=== PATIENT | female | born 1975 | race Caucasian/White ===

== ENCOUNTER → 2016-07-21 | Outpatient (CLI) | payer BC ==
--- NOTE | 2016-07-21 08:09 | US ---
EXAMINATION TYPE: US abdomen complete DATE OF EXAM: 07/21/2016 7:27 AM COMPARISON: on PACS CLINICAL HISTORY: R10.0 Acute Abd Pain,. Aches after eating EXAM MEASUREMENTS: Liver Length: 20.6 cm Gallbladder Wall: 0.1 cm CBD: 0.3 cm CHD: 0.3 cm Spleen: 10.2 cm Right Kidney: 11.1 x 4.4 x 4.5 cm Left Kidney: 11.3 x 5.1 x 7.0 cm Pancreas: wnl Liver: enlarged Gallbladder: fold seen, wnl Evidence for sonographic Skinner's sign: neg CBD: wnl Spleen: wnl Right Kidney: wnl Left Kidney: wnl Upper IVC: seen Abd Aorta: seen The liver is homogenous. The intrahepatic portion of the IVC and proximal abdominal aorta are within normal limits. There is no evidence of cholelithiasis. Common bile duct is unremarkable. The visu alized portions of the pancreas are homogenous. The spleen is unremarkable. Kidneys are symmetric a nd free of hydronephrosis. No renal lesions are seen. IMPRESSION: No distinct abnormality appreciated.
== END | disposition home or self-care (01) ==
LOC: RADUSWWP 06:57
PROVIDERS: ATTEND Family Medicine
DX: R10.0 Acute abdomen (principal)
CPT/HCPCS: 76700

== ENCOUNTER → 2016-07-21 | Outpatient (CLI) | payer BC ==
--- NOTE | 2016-07-24 09:21 | MM ---
Reason for exam: screening (asymptomatic). History: Family history of breast cancer in paternal grandmother. Taking hormonal contraceptives for 5 years. Physical Findings: A clinical breast exam by your physician is recommended on an annual basis and results should be correlated with mammographic findings. MG 3D Screening Mammo W/Cad Bilateral CC and MLO view(s) were taken. No prior studies available for comparison. Benign calcifications bilaterally. No significant changes when compared with prior studies. ASSESSMENT: Benign, BI-RAD 2 RECOMMENDATION: Routine screening mammogram of both breasts in 1 year.
== END | disposition home or self-care (01) ==
LOC: RADMAMWWP 07:01
PROVIDERS: ATTEND Obstetrics & Gynecology
DX: Z12.31 Encounter for screening mammogram for malignant neoplasm of breast (principal); Z80.3 Family history of malignant neoplasm of breast
CPT/HCPCS: 77063; G0202

== ENCOUNTER → 2016-11-21 | Outpatient (CLI) | payer BC | END | disposition home or self-care (01) | LOC: RADECHMAIN 11:47 | PROVIDERS: ATTEND Family Medicine | DX: R00.1 Bradycardia, unspecified (principal); R00.0 Tachycardia, unspecified | CPT/HCPCS: 93225; 93226 ==

== ENCOUNTER → 2020-06-23 | Outpatient (CLI) | payer BC ==
--- NOTE | 2020-06-25 08:10 | MM ---
Reason for exam: screening (asymptomatic). Last mammogram was performed 3 years and 11 months ago. History: Family history of breast cancer in paternal grandmother. Taking hormonal contraceptives for 5 years. Physical Findings: A clinical breast exam by your physician is recommended on an annual basis and results should be correlated with mammographic findings. MG 3D Screening Mammo W/Cad Bilateral CC and MLO view(s) were taken. Prior study comparison: July 21, 2016, bilateral MG 3d screening mammo w/cad. There are scattered fibroglandular densities. No significant changes when compared with prior studies. ASSESSMENT: Negative, BI-RAD 1 RECOMMENDATION: Routine screening mammogram of both breasts in 1 year.
== END | disposition home or self-care (01) ==
LOC: RADMAMWWP 15:52
PROVIDERS: ATTEND Obstetrics & Gynecology
DX: Z12.31 Encounter for screening mammogram for malignant neoplasm of breast (principal)
CPT/HCPCS: 77063; 77067

== ENCOUNTER → 2020-09-10 | Outpatient (CLI) | payer BC ==
--- NOTE | 2020-09-10 12:44 | EST ---
EXERCISE STRESS PROCEDURE: Stress test INDICATION: Chest pain. PROCEDURE IN DETAIL: Baseline EKG shows sinus rhythm with poor R-wave progression. Patient exercised on Ced protocol for a total of 6 minutes and 50 seconds achieving 8 METS, 92% of predicted maximal heart rate without chest pain or diagnostic ST-segment depression. CONCLUSIONS: 1. Limited exercise tolerance. 2. Negative stress test by EKG criteria. MMMARILUL / IJN: [id number] /
== END | disposition home or self-care (01) ==
LOC: RADNMMAIN 08:33
PROVIDERS: ATTEND Family Medicine
DX: R07.9 Chest pain, unspecified (principal)
CPT/HCPCS: 93017

== ENCOUNTER 2023-01-28 13:25 | Emergency (ER) | payer BC ==
[2023-01-28] MEDS ORDERED: KETOROLAC 15 MG/ML 1 ML VIAL IM STA (13:48)
[2023-01-28] MEDS ORDERED: HYDROcodone/APAP 5-325MG 1 EACH TAB PO STA (13:48)
--- NOTE | 2023-01-28 14:43 | ED ---
General Adult HPI - General Chief complaint: Fall Stated complaint: Fall,on 01/26 Time Seen by Provider: 01/28/23 13:30 Source: patient, RN notes reviewed, old records reviewed Mode of arrival: ambulatory Limitations: no limitations - History of Present Illness Initial comments: Patient is a 47 red female presents emergency Department after a fall. Patient fell down 3 bun steps on Sunday and is still complaining of left-sided leg pain. States that when she fell she landed on her left hip and rolled on the status. Is complaining of posterior left thigh, left knee, left tib-fib pain. Thinks it may be bruised but has pain with movement and when standing up. Presents for further evaluation at this time. Seeking x-rays. No sensory deficits. Still is normal range of motion. He has been weightbearing on it. Denies head injury or loss of consciousness. - Related Data Previous Rx's Medication Instructions Recorded Cyclobenzaprine [Flexeril] 5 mg PO TID PRN 7 Days #21 tablet 01/28/23 Allergies Allergy/AdvReac Type Severity Reaction Status Date / Time No Known Allergies Allergy Verified 01/28/23 13:29 Review of Systems ROS Statement: Those systems with pertinent positive or pertinent negative responses have been documented in the HPI. Review of Systems: CONST: Denies fever EYES: Denies blurry vision ENT: Denies nasal congestion C/V: Denies Chest pain RESP: Denies shortness of breath GI: Denies abdominal pain : Denies dysuria SKIN: Denies rash. MSK: Endorses generalized left leg pain NEURO: Denies headache ROS Other: All systems not noted in ROS Statement are negative. Past Medical History Past Medical History: No Reported History History of Any Multi-Drug Resistant Organisms: None Reported Additional Past Surgical History / Comment(s): LORELEI Past Psychological History: No Psychological Hx Reported Smoking Status: Never smoker Past Alcohol Use History: None Reported Past Drug Use History: None Reported General Exam - General Exam Comments Initial Comments: General: Appears in no acute distress. HEAD: Normal with no signs of head trauma. EYES: EOMI ENT: Hearing grossly intact, normal oropharynx. RESPIRATORY: No respiratory distress C/V: Regular rate and rhythm. S1 and S2 auscultated, peripheral pulses 2+ and intact throughout ABD: Abdomen is nontender. EXT: Normal range of motion, no obvious deformity. Tenderness to palpation along the posterior aspect of the left femur, knee, tib-fib. Bruising located along the site. Decreased range of motion of the left knee secondary to pain. Pain with varus and valgus movements. Anterior drawer test negative. SKIN: No rashes or lesions observed on exposed skin. NEURO: Alert and oriented 4. Limitations: no limitations Course Vital Signs 01/28/23 01/28/23 13:26 16:03 Temperature 98.3 F 98.4 F Pulse Rate 97 72 Respiratory 20 18 Rate Blood Pressure 137/83 136/78 O2 Sat by Pulse 99 97 Oximetry Medical Decision Making - Medical Decision Making Was pt. sent in by a medical professional or institution (, PA, WHIPPER, urgent care, hospital, or fdc...) When possible be specific @ -No Did you speak to anyone other than the patient for history (EMS, parent, family, police, friend...)? What history was obtained from this source @ -No Did you review nursing and triage notes (agree or disagree)? Why? @ -I reviewed and agree with nursing and triage notes Were old charts reviewed (outside hosp., previous admission, EMS record, old EKG, old radiological studies, urgent care reports/EKG's, fdc records)? Report findings @ -No old charts were reviewed Differential Diagnosis (chest pain, altered mental status, abdominal pain women, abdominal pain men, vaginal bleeding, weakness, fever, dyspnea, syncope, headache, dizziness, GI bleed, back pain, seizure, CVA, palpatations, mental h ealth, musculoskeletal)? @ -Differential Musculoskeletal Muscular strain, contusion, ligament sprain, fracture, arthritis, septic arthritis, bursitis, cellulitis, muscle spasm, nerve compression, DVT, arterial occlusion, herpes zoster, electrolyte abnormality, tumor.... This is not meant to be in all inclusive list EKG interpreted by me (3pts min.). @ -None done X-rays interpreted by me (1pt min.). @ -X-ray imaging of the left lower extremity reveals no evidence of acute fracture or subluxation. CT interpreted by me (1pt min.). @ -None done U/S interpreted by me (1pt. min.). @ -None done What testing was considered but not performed or refused? (CT, X-rays, U/S, labs)? Why? @ -None What meds were considered but not given or refused? Why? @ -None Did you discuss the management of the patient with other professionals (professionals i.e. , PA, WHIPPER, lab, RT, psych nurse, social sciences professor, clinical resource director, teacher, business development officer, case therapist)? Give summary @ -No Was smoking cessation discussed for >3mins.? @ -No Was critical care preformed (if so, how long)? @ -No Were there social determinants of health that impacted care today? How? (Homelessness, low income, unemployed, alcoholism, drug addiction, transportati on, low edu. Level, literacy, decrease access to med. care, usp, rehab)? @ -No Was there de-escalation of care discussed even if they declined (Discuss DNR or withdrawal of care, Hospice)? DNR status @ -No What co-morbidities impacted this encounter? (DM, HTN, Smoking, COPD, CAD, Cancer, CVA, ARF, Chemo, Hep., AIDS, mental health diagnosis, sleep apnea, morbid obesity)? @ -None Was patient admitted / discharged? Hospital course, mention meds given and route, prescriptions, significant lab abnormalities, going to OR and other pertinent info. @ -Based on the patient's presentation and physical exam, I'm concerned for possible leg injury. Likely soft tissue in nature but we will obtain x-rays. Patient in agreement this plan. She'll be symptomatically treated with oral Vinton as well as IM Toradol. Vital signs within acceptable limits. X-rays negative for any obvious acute injury. I updated the patient. Patient will be discharged home at this time with follow-up with orthopedics. She'll be given crutches as well as a knee immobilizer. She was in agreement with this plan. Suspect knee sprain. Discussed elevation, ice of her left leg as well as [id number] analgesic medications as needed. I will provide the patient with a prescription for Flexeril. I instructed the patient to follow up with their PCP in the next 1-3 days. I provided contact information for follow up with orthopedic surgery. I explained that the patient should return to the emergency department if they experience any worsening symptoms. Strict return precautions were discussed with the patient. The patient expressed understanding of these instructions. I answered all questions that the patient had. The patient was discharged home in fair condition with their prescriptions and follow up information. Undiagnosed new problem with uncertain prognosis? @ -No Drug Therapy requiring intensive monitoring for toxicity (Heparin, Nitro, Insulin, Cardizem)? @ -No Were any procedures done? @ -No Diagnosis/symptom? @ -Fall, left knee sprain Acute, or Chronic, or Acute on Chronic? @ -Acute Uncomplicated (without systemic symptoms) or Complicated (systemic symptoms)? @ -Uncomplicated Side effects of treatment? @ -none Exacerbation, Progression, or Severe Exacerbation] @ -no Poses a threat to life or bodily function? @ -no Disposition Clinical Impression: Fall, Left knee sprain Disposition: HOME SELF-CARE Condition: Fair Instructions (If sedation given, give patient instructions): Leg Sprain (ED), Fall Prevention (ED) Prescriptions: Cyclobenzaprine [Flexeril] 5 mg PO TID PRN 7 Days #21 tablet PRN Reason: Pain Is patient prescribed a controlled substance at d/c from ED?: No Referrals: Myesha Sommers MD [Primary Care Provider] - 1-2 days Guadalupe Mccormick DO [Doctor of Osteopathic Medicine] - 1-2 days Time of Disposition: 15:05
--- NOTE | 2023-01-28 14:44 | XR ---
EXAMINATION TYPE: XR pelvis AP view DATE OF EXAM: 01/28/2023 2:24 PM INDICATION: Patient age:Female; 47 years old; Reason for study: fall, pain; PHH. COMPARISON: CT urogram 01/15/2015 TECHNIQUE: The pelvis was examined in a single projection. FINDINGS: There is no evidence of fracture or dislocation. There is no soft tissue abnormality. Few pelvic phleboliths. Multilevel degenerative changes of the lower spine. IMPRESSION: No acute osseous pathology.
--- NOTE | 2023-01-28 14:45 | XR ---
EXAMINATION TYPE: XR femur LT DATE OF EXAM: 01/28/2023 2:24 PM INDICATION: Patient age:Female; 47 years old; Reason for study: fall, pain; COMPARISON: Pelvic radiograph the same date. TECHNIQUE: The left femur was examined in AP and lateral projections. FINDINGS: No evidence of acute osseous pathology, joint dislocation, or soft tissue swelling . Pelvi c phleboliths. IMPRESSION: No acute osseous pathology.
--- NOTE | 2023-01-28 14:46 | XR ---
EXAMINATION TYPE: XR knee complete LT DATE OF EXAM: 01/28/2023 2:24 PM INDICATION: Patient age:Female; 47 years old; Reason for study: fall, pain; PHH. COMPARISON: Left lower extremity radiograph same date TECHNIQUE: The Left knee(s) was examined in Frontal, lateral and oblique projections. FINDINGS: No evidence of any acute osseous pathology, soft tissue swelling, or joint effusion is no verito. IMPRESSION: No acute osseous pathology.
--- NOTE | 2023-01-28 14:47 | XR ---
EXAMINATION TYPE: XR tibia fibula LT DATE OF EXAM: 01/28/2023 2:25 PM INDICATION: Patient age:Female; 47 years old; Reason for study: pain; PHH. COMPARISON: Left lower extremity radiographs the same day. TECHNIQUE: The left tibia/fibula was examined in AP and lateral projections. FINDINGS: No evidence of any acute osseous pathology, joint dislocation. Mild soft tissue swelling of the ankle. Prominent plantar calcaneal enthesophyte. IMPRESSION: 1. No evidence of acute fracture. 2. Mild soft tissue swelling of the ankle.
[2023-01-28] MEDS ORDERED: ACET/COD 300 MG/30 MG STARTER PACK 6 TAB BTL PO STA (15:35)
[2023-01-28 16:05] VITALS: BP 136/78; PULSE 72; RESP 18; TEMP 98.4
== END 2023-01-28 16:06 | disposition home or self-care (01) ==
LOC: EC 13:25
DX: S83.92XA Sprain of unspecified site of left knee, initial encounter (principal); W10.9XXA Fall (on) (from) unspecified stairs and steps, initial encounter
CPT/HCPCS: 72170; 73552; 73590; 73562; 99284; 96372; L1830; J1885

== ENCOUNTER → 2024-04-07 | Outpatient (CLI) | payer BC ==
--- NOTE | 2024-04-11 13:02 | MM ---
Reason for Exam: Screening (asymptomatic). Last mammogram was performed 3 year(s) and 10 month(s) ago. Patient History: Menarche at age 10. First Full-Term at age 16. Premenopausal. Currently using Hormonal Contraceptives, for 5 years. Paternal grandmother had breast cancer. Risk Values: Alycia 5 year model risk: 0.7%. NCI Lifetime model risk: 7.5%. Prior Study Comparison: 07/21/2016 Bilateral Screening Mammogram, [facility]ED WITH [facility]. 06/23/2020 Bilateral Screening Mammogram, [facility]ED WITH [facility]. Tissue Density: The breasts are almost entirely fatty. Findings: Analyzed By CAD. Right breast: There is no suspicious group of microcalcifications or new suspicious mass. Benign-appearing calcifications right breast. Left breast: There is no suspicious group of microcalcifications or new suspicious mass. Benign-appearing calcifications left breast. Overall Assessment: Benign, BI-RAD 2 Management: Screening Mammogram of both breasts in [address] [facility] will attempt to contact patient to return for supplemental views and ultrasound if indicated. Patient should continue monthly self-breast exams. A clinical breast exam by your physician is recommended on an annual basis. This exam should not preclude additional follow-up of suspicious palpable abnormalities. Note on Alycia scores and lifetime risk: 1. A Alycia score greater than 3% is considered moderate risk. If this is the case, consider specialist referral to assess eligibility for a risk reducing agent. 2. If overall lifetime risk for the development of breast cancer is 20% or higher, the patient may qualify for future screening with alternating mammogram and breast MRI. [facility], , 04/11/2024 1:00 PM. Electronically signed and approved by: Holger Jorge DO
== END | disposition home or self-care (01) ==
LOC: RADMAMWWP 14:41
PROVIDERS: ATTEND Obstetrics & Gynecology
DX: Z12.31 Encounter for screening mammogram for malignant neoplasm of breast (principal); Z80.3 Family history of malignant neoplasm of breast
CPT/HCPCS: 77063; 77067